=== PATIENT | male | born 1990 | race Two or more races ===

== ENCOUNTER 2020-11-03 04:09 | Emergency (ER) | payer OTHER ==
[2020-11-03] MEDS ORDERED: Acetaminophen 500 MG Tab PO ONE (04:40)
[2020-11-03] MEDS ORDERED: Ibuprofen 600 MG Tab PO ONE (04:40)
[2020-11-03 05:06] LABS: BLOOD UREA NITROGEN,BUN 11 mg/dL (7.0-18.0); CARBON DIOXIDE,CO2 29.1 mmol/L (21.0-32.0); CHLORIDE,CL 98 mmol/L (98-107); GLUCOSE RANDOM 144 mg/dL (74-106); POTASSIUM,K 3.9 mmol/L (3.5-5.1); SODIUM,NA 134 mmol/L (136-148)
--- NOTE | 2020-11-03 05:16 | CR ---
For Patients: As a result of the Cures Act, medical imaging exams and procedure reports are released immediately into your electronic medical record. You may view this report before your referring provider. If you have questions, please contact your health care provider. INDICATION: Shortness of breath TECHNIQUE: Chest radiograph 1 view COMPARISON: None FINDINGS: Severe degradation of image quality noted due to body habitus. Mediastinum: The mediastinum is normal in appearance. The heart silhouette is normal in size and morphology. Lung: Mild patchy ground-glass opacities are present in the mid and lower lung zones with small lung volumes. No sign of pleural effusion seen. No pneumothorax is identified. Bone and Soft tissue: Unremarkable for age. IMPRESSION: 1. Mild patchy ground-glass opacities are present in the mid and lower lung zones with small lung volumes. These findings can be seen with atelectasis and/or atypical pneumonia. Dictated by Antwan Williamson MD @ 11/03/2020 5:13:32 AM Dictated by: Antwan Williamson MD @ 11/03/2020 05:13:38 (Electronically Signed)
--- NOTE | 2020-11-03 05:31 | EDM.PDOC ---
<Zen Huitron - Last Filed: 11/03/20 06:16> ED HPI GENERAL MEDICAL PROBLEM - General Chief Complaint: Respiratory Problem Stated Complaint: COVID POSITIVE, COUGH, FEVER Time Seen by Provider: 11/03/20 04:56 - History of Present Illness INITIAL COMMENTS - FREE TEXT/NARRATIVE: HISTORY AND PHYSICAL: History of present illness: This is a healthy 29-year-old gentleman with no history of hypertension, diab etes, liver, lung, kidney problems who presents ER today secondary to persistent cough and recurrence of his fever after being diagnosed with coronavirus approximately 9 days ago. Patient reports that his onset of symptoms was October 22 and got diagnosed on October 25 with coronavirus. Patient reports that he was doing well after several days however approximately 2 days ago he reports his fever returned and he has been having temperatures of 102 at home. Patient reports mild shortness of breath but no significant changes. Patient reports a cough with diarrhea. Patient denies any abdominal pain. Patient has any headache or nuchal rigidity. Patient has a sore throat or ear pain. Patient reports is been able to tolerate p.o. solids and liquids well. Patient has been having nausea but no vomiting. Patient denies any dysuria, frequency, urgency, hematuria. Patient has any melena or bright red blood per rectum. Review of systems: As per history of present illness and below otherwise all systems reviewed and negative. Past medical history: As per history of present illness and as reviewed below otherwise noncontributory. Surgical history: As per history of present illness and as reviewed below otherwise noncontributory. Social history: No reported history of drug abuse. Family history: As per history of present illness and as reviewed below otherwise noncontributory. Physical exam: This patient was seen and evaluated during the 2019 SARS-CoV-2 novel coronavirus pandemic period. Community viral transmission is ongoing at time of this encounter and the emergency department is operating under pandemic response procedures. Constitutional: Patient is oriented to person, place, and time. Appears well- developed and well-nourished. No distress. HEENT: Moist mucous membranes Head: Normocephalic and atraumatic. Neck supple, no nuchal rigidity, no photophobia, no Kernig's sign or Brudzinski sign, patient does not present with signs or symptoms of be consistent with meningitis. Eyes: Right eye exhibits no discharge. Left eye exhibits no discharge. No scleral icterus Neck: Normal range of motion. No tracheal deviation present. Cardiovascular: Normal rate and regular rhythm. Pulmonary: Effort normal, no respiratory distress. Abd: Soft, nondistended, no rebound/guarding, no psoas or obturator signs, no tenderness at Mcberney's point, no Ibrahim's sign. Pt does not present with an exam that would be consistent with an acute surgical abdomen at this time Musculoskeletal: Normal range of motion Neurologic: Alert and oriented to person, place and time. Skin: [place], warm and dry. Psychiatric: Normal mood and affect. Behavior is normal. Judgment and thought content normal. Nursing note and vital signs have been reviewed Patient's ER physical exam is significant for a well-developed well-nourished 29-year-old gentleman who does not have any respiratory distress, speaking in full sentences, and has a pulse ox of 98% on room air. Patient is tachycardic and feels warm to touch Diagnostics: CBC, CMP within normal limits Chest Xray: Normal cardiac silhouette No infiltrates or effusions identified. Patient with increased interstitial markings bilaterally consistent with an atypical pneumonia/coronavirus infection No PTX No evidence of acute bony fracture. As interpreted by ER MD: [employer]: 1 L NSS, Tylenol. Assessment and plan: 29-year-old gentleman who presents ER today secondary to persistent symptoms with coronavirus. Patient reports that his fever had defervesced and then over the last couple days he is started having fever again. Patient reports his temperature was 102 earlier today. Patient complains of mild shortness of breath but that has not changed since his diagnosis. Patient reports he has not received his coronavirus vaccination. Patient reports that he works in the [employer] Patient has been given 1 L of NSS and antipyretics to assist with the symptoms he does feel better while waiting in the ED. Patient's chest x-ray reveals changes consistent with viral pneumonia/COVID-19 pneumonia and appears mild in nature. Patient's D-dimer is elevated 0.74. We will obtain a CTA of the chest to rule out PE as a cause of his shortness of breath. - Related Data Allergies Allergy/AdvReac Type Severity Reaction Status Date / Time No Known Allergies Allergy Verified 11/03/20 04:38 Home Meds: Home Meds . [No Known Home Meds] 11/03/20 [History] Past Medical History - Past Health History Medical/Surgical History: Denies Medical/Surgical History - Infectious Disease History Other Infectious Disease History: covid Social & Family History - Family History Family Medical History: No Pertinent Family History - Tobacco Use Tobacco Use Status *Q: Never Tobacco User - Recreational Drug Use Recreational Drug Use: No ED ROS GENERAL - Review of Systems Review Of Systems: See Below ED EXAM, GENERAL - Physical Exam Exam: See Below Departure - Departure Disposition: Home, Self-Care 01 Clinical Impression: Multiple persistent symptoms after COVID-19 - Discharge Information Instructions: COVID-19: What Your Test Results Mean - [facility] Referrals: PCP,None [Primary Care Provider] - Forms: ED Department Discharge Additional Instructions: You were seen and evaluated in ER today secondary to concerns regarding your re cent COVID-19 infection. The symptoms that you are experiencing are not uncommon with patients who have been diagnosed with coronavirus. At this time, the good news is your chest x-ray does not reveal any significant inflammation in your lungs, your oxygen level is been maintained at 98%, and all your blood tests have appeared normal. The only abnormality that was identified with an elevated D-dimer test which is a test that we utilized to look for blood clots that could potentially be in your lungs. This test can be elevated for no reason at all however given that years was slightly elevated CT scan of your chest was performed to look for blood clots in your lungs that could develop from coronavirus. Sepsis Event Note (ED) - Evaluation Sepsis Screening Result: Possible Sepsis Risk <Conrad Pineda - Last Filed: 11/03/20 07:44> Course - Vital Signs Last Recorded V/S: Last Vital Signs Temp 96.3 F L 11/03/20 07:37 Pulse 90 11/03/20 07:37 Resp 18 11/03/20 07:37 BP 130/83 11/03/20 07:37 Pulse Ox 100 11/03/20 07:37 - Orders/Labs/Meds Labs: Laboratory Tests 11/03/20 11/03/20 11/03/20 Range/Units 04:30 04:30 05:09 WBC 6.24 (4.0-11.0) K/uL RBC 5.25 (4.50-5.90) M/uL Hgb 16.5 (13.0-17.0) g/dL Hct 46.5 (38.0-50.0) % MCV 88.6 (80.0-98.0) fL MCH 31.4 (27.0-32.0) pg MCHC 35.5 (31.0-37.0) g/dL RDW Std Deviation 40.5 (28.0-62.0) fl RDW Coeff of Didier 13 (11.0-15.0) % Plt Count 217 (150-400) K/uL MPV 9.90 (7.40-12.00) fL Nucleated RBC % 0.0 /100WBC Nucleated RBCs # 0 K/uL D-Dimer, Quantitative 0.77 H (0.0-0.50) mg/L FEU Sodium 134 L (136-148) mmol/L Potassium 3.9 (3.5-5.1) mmol/L Chloride 98 (98-107) mmol/L Carbon Dioxide 29.1 (21.0-32.0) mmol/L BUN 11 (7.0-18.0) mg/dL Creatinine 1.1 (0.8-1.3) mg/dL Est Cr Clr Drug Dosing TNP Estimated GFR (MDRD) > 60.0 ml/min Glucose 144 H (74-106) mg/dL Calcium 8.4 L (8.5-10.1) mg/dL Total Bilirubin 0.5 (0.2-1.0) mg/dL AST 45 H (15-37) IU/L ALT 60 (14-63) IU/L Alkaline Phosphatase 68 (46-116) U/L Total Protein 7.4 (6.4-8.2) g/dL Albumin 3.2 L (3.4-5.0) g/dL Globulin 4.2 H (2.6-4.0) g/dL Albumin/Globulin Ratio 0.8 L (0.9-1.6) Meds: Medications Discontinued Medications Generic Name Dose Route Start Last Admin Trade Name Freq PRN Reason Stop Dose Admin Acetaminophen 1,000 mg 11/03/20 04:40 11/03/20 04:48 Acetaminophen 500 Mg Tab PO 11/03/20 04:41 1,000 mg ONETIME ONE Administration Ibuprofen 600 mg 11/03/20 04:40 11/03/20 04:48 Ibuprofen 600 Mg Tab PO 11/03/20 04:41 600 mg ONETIME ONE Administration Iopamidol 100 ml 11/03/20 07:05 11/03/20 07:06 Iopamidol 755 Mg/Ml 500 Ml Multipack Bottle IVPUSH 11/03/20 07:06 100 ml ONETIME STA Administration - Re-Assessments/Exams Free Text/Narrative Re-Assessment/Exam: 11/03/20 07:42 Signout to me from previous provider. Patient was pending a CT PE study. CT scan is negative for any pulmonary embolism. Patient heart rate from 80 he was well side 100 was on room air patient be discharged home. Departure - Departure Time of Disposition: 07:43 Condition: Good - Discharge Information *PRESCRIPTION DRUG MONITORING PROGRAM REVIEWED*: Not Applicable *COPY OF PRESCRIPTION DRUG MONITORING REPORT IN PATIENT YASMINE: Not Applicable Sepsis Event Note (ED) - Focused Exam Vital Signs: Vital Signs Temp Pulse Resp BP Pulse Ox 11/03/20 07:37 96.3 F L 90 18 130/83 100 11/03/20 04:33 98.8 F 124 H 20 125/80 98
[2020-11-03] MEDS ORDERED: Iopamidol 755 MG/ML 500 ML Multipack Bottle IVPUSH STA (07:05)
--- NOTE | 2020-11-03 07:29 | CT ---
INDICATION: Shortness of breath. Elevated D-dimer. TECHNIQUE: CT chest PE was acquired with 100 cc Isovue 370 IV contrast. COMPARISON: None. FINDINGS: Heart and vasculature: Contrast opacification of the pulmonary arterial tree is adequate. No sign of pulmonary embolism. Heart size is normal. Thoracic aorta and pulmonary artery are normal in caliber. Lungs and pleural: There are diffuse bilateral patchy ground-glass infiltrates. No suspicious nodule. No pleural effusions, pleural thickening, or pneumothorax. Lymph nodes/mediastinum: No mediastinal, hilar, or axillary adenopathy. Chest wall: No masses. Upper abdomen: Normal. Bones: Unremarkable for age. IMPRESSION: 1. No pulmonary embolism. 2. Diffuse patchy bilateral ground-glass infiltrates consistent with pneumonitis. COVID-19 viral infection could have this appearance. Please note that all CT scans at this facility use dose modulation, iterative reconstruction, and/or weight-based dosing when appropriate to reduce radiation dose to as low as reasonably achievable. Dictated by Asael Neumann MD @ 11/03/2020 7:27:[address] Asael Neumann @ Nov 03 2020 7:27AM
== END 2020-11-03 07:50 | disposition home or self-care (01) ==
LOC: MW.ED 04:09
DX: U07.1 COVID-19 (principal); J12.82 Pneumonia due to coronavirus disease 2019; J96.01 Acute respiratory failure with hypoxia; E11.9 Type 2 diabetes mellitus without complications
CPT/HCPCS: 36415; 71045; 71275; 80053; 85027; 85379; 99284; A9270; Q9967

== ENCOUNTER 2020-11-05 22:11 | Inpatient (IN) | payer OTHER ==
--- NOTE | 2020-11-05 22:31 | EDM.PDOC ---
ED HPI GENERAL MEDICAL PROBLEM - General Chief Complaint: Respiratory Problem Stated Complaint: DIFFICULTY BREATHING, COVID POSITIVE Time Seen by Provider: 11/05/20 22:14 Source of Information: Reports: Patient History Limitations: Reports: No Limitations - History of Present Illness INITIAL COMMENTS - FREE TEXT/NARRATIVE: Patient is a 29-year-old male who presents today for shortness of breath. Patient was seen here 2 days ago for shortness of breath. He also tested positive for Covid. States symptoms started about 10 days ago tested positive recently. The previous visit he was seen has CT PE r/o is negative. Patient states that today whenever he got up to move around enough to the bathroom became severely short of breath. Even coming here walking to the front door he almost passed out because he cannot breathe. We arrived he was satting 86% on room air was placed on a nonrebreather. He is satting 90% on nonrebreather his nasal cannula is now at 93%. Patient denies any chest pain fever chills or other complaints. - Related Data Allergies Allergy/AdvReac Type Severity Reaction Status Date / Time No Known Allergies Allergy Verified 11/05/20 22:22 Home Meds: Home Meds . [No Known Home Meds] 11/03/20 [History] Past Medical History - Past Health History Medical/Surgical History: Denies Medical/Surgical History - Infectious Disease History Other Infectious Disease History: covid Social & Family History - Family History Family Medical History: No Pertinent Family History ED ROS GENERAL - Review of Systems Review Of Systems: See Below Constitutional: Reports: No Symptoms HEENT: Reports: No Symptoms Respiratory: Reports: Shortness of Breath Cardiovascular: Reports: No Symptoms Endocrine: Reports: No Symptoms GI/Abdominal: Reports: No Symptoms : Reports: No Symptoms Musculoskeletal: Reports: No Symptoms Skin: Reports: No Symptoms Neurological: Reports: No Symptoms Psychiatric: Reports: No Symptoms Hematologic/Lymphatic: Reports: No Symptoms Immunologic: Reports: No Symptoms ED EXAM, GENERAL - Physical Exam Exam: See Below Exam Limited By: No Limitations General Appearance: Alert, WD/WN, No Apparent Distress Eye Exam: Bilateral Eye: EOMI, PERRL Neck: Normal Inspection Respiratory/Chest: No Respiratory Distress, No Accessory Muscle Use GI/Abdominal: Normal Bowel Sounds, Soft, Non-Tender Extremities: Normal Inspection, Normal Range of Motion Neurological: Alert, Oriented, Normal Cognition, Normal Gait Course - Vital Signs Last Recorded V/S: Last Vital Signs Temp 98.1 F 11/05/20 22:15 Pulse 85 11/05/20 22:15 Resp 24 H 11/05/20 22:15 BP 159/81 H 11/05/20 22:15 Pulse Ox 93 L 11/05/20 22:35 - Orders/Labs/Meds Orders: Active Orders 24 hr Category Date Time Status Patient Status [ADT] Routine ADT 11/05/20 23:15 Ordered BILIRUBIN DIRECT [CHEM] DAILY Lab 11/06/20 22:45 Ordered BILIRUBIN DIRECT [CHEM] DAILY Lab 11/07/20 22:45 Ordered BILIRUBIN DIRECT [CHEM] DAILY Lab 11/08/20 22:45 Ordered BILIRUBIN DIRECT [CHEM] DAILY Lab 11/09/20 22:45 Ordered Labs: Laboratory Tests 11/05/20 11/05/20 11/05/20 Range/Units 22:35 22:35 22:35 WBC 8.19 (4.0-11.0) K/uL RBC 4.91 (4.50-5.90) M/uL Hgb 15.2 (13.0-17.0) g/dL Hct 44.1 (38.0-50.0) % MCV 89.8 (80.0-98.0) fL MCH 31.0 (27.0-32.0) pg MCHC 34.5 (31.0-37.0) g/dL RDW Std Deviation 42.0 (28.0-62.0) fl RDW Coeff of Didier 13 (11.0-15.0) % Plt Count 333 (150-400) K/uL MPV 9.20 (7.40-12.00) fL Neut % (Auto) 69.6 (48.0-80.0) % Lymph % (Auto) 20.8 (16.0-40.0) % [place] % (Auto) 8.3 (0.0-15.0) % Eos % (Auto) 0.9 (0.0-7.0) % Baso % (Auto) 0.4 (0.0-1.5) % Neut # (Auto) 5.7 (1.4-5.7) K/uL Lymph # (Auto) 1.7 (0.6-2.4) K/uL [place] # (Auto) 0.7 (0.0-0.8) K/uL Eos # (Auto) 0.1 (0.0-0.7) K/uL Baso # (Auto) 0.0 (0.0-0.1) K/uL Nucleated RBC % 0.0 /100WBC Nucleated RBCs # 0 K/uL Sodium 142 (136-148) mmol/L Potassium 3.6 (3.5-5.1) mmol/L Chloride 103 (98-107) mmol/L Carbon Dioxide 29.9 (21.0-32.0) mmol/L BUN 7 (7.0-18.0) mg/dL Creatinine 0.8 (0.8-1.3) mg/dL Est Cr Clr Drug Dosing 155.55 mL/min Estimated GFR (MDRD) > 60.0 ml/min Glucose 142 H (74-106) mg/dL Calcium 8.6 (8.5-10.1) mg/dL Total Bilirubin 0.4 (0.2-1.0) mg/dL Direct Bilirubin 0.10 (0.0-0.5) mg/dL AST 35 (15-37) IU/L ALT 44 (14-63) IU/L Alkaline Phosphatase 63 (46-116) U/L Creatine Kinase 187 (26-308) U/L Troponin I < 0.050 (0.000-0.056) ng/mL Total Protein 7.0 (6.4-8.2) g/dL Albumin 2.8 L (3.4-5.0) g/dL Globulin 4.2 H (2.6-4.0) g/dL Albumin/Globulin Ratio 0.7 L (0.9-1.6) Meds: Medications Discontinued Medications Generic Name Dose Route Start Last Admin Trade Name Freq PRN Reason Stop Dose Admin Dexamethasone 10 mg 11/05/20 22:43 11/05/20 23:01 Dexamethasone 10 Mg/Ml Sdv IVPUSH 11/05/20 22:44 10 mg ONETIME ONE Administration Remdesivir 200 mg/ Sodium 250 mls @ 250 mls/hr 11/05/20 22:43 Chloride IV 11/05/20 22:44 ONETIME ONE Departure - Departure Time of Disposition: 23:16 Disposition: Admitted As Inpatient 64 Condition: Good Clinical Impression: Hypoxia - Discharge Information *PRESCRIPTION DRUG MONITORING PROGRAM REVIEWED*: Not Applicable *COPY OF PRESCRIPTION DRUG MONITORING REPORT IN PATIENT YASMINE: Not Applicable Forms: ED Department Discharge Critical Care Note - Critical Care Note Total Time (mins): 45 Comments: Critical Care Procedure Note Authorized and Performed by: Dr. Pineda Total critical care time: Approximately Due to a high probability of clinically significant, life threatening deterioration, the patient required my highest level of preparedness to intervene emergently and I personally spent this critical care time directly and personally managing the patient. This critical care time included obtaining a history; examining the patient; pulse oximetry; ordering and review of studies; arranging urgent treatment with development of a management plan; evaluation of patient's response to treatment; frequent reassessment; and, discussions with other providers. This critical care time was performed to assess and manage the high probability of imminent, life-threatening deterioration that could result in multi-organ failure. It was exclusive of separately billable procedures and treating other patients and teaching time. Sepsis Event Note (ED) - Evaluation Sepsis Screening Result: No Definite Risk - Focused Exam Vital Signs: Vital Signs Temp Pulse Resp BP Pulse Ox 11/05/20 22:35 93 L 11/05/20 22:20 98 11/05/20 22:15 98.1 F 85 24 H 159/81 H 88 L - My Orders Last 24 Hours: My Active Orders 11/05/20 23:15 Patient Status [ADT] Routine 11/06/20 22:45 BILIRUBIN DIRECT [CHEM] DAILY 11/07/20 22:45 BILIRUBIN DIRECT [CHEM] DAILY 11/08/20 22:45 BILIRUBIN DIRECT [CHEM] DAILY 11/09/20 22:45 BILIRUBIN DIRECT [CHEM] DAILY - Assessment/Plan Last 24 Hours: My Active Orders 11/05/20 23:15 Patient Status [ADT] Routine 11/06/20 22:45 BILIRUBIN DIRECT [CHEM] DAILY 11/07/20 22:45 BILIRUBIN DIRECT [CHEM] DAILY 11/08/20 22:45 BILIRUBIN DIRECT [CHEM] DAILY 11/09/20 22:45 BILIRUBIN DIRECT [CHEM] DAILY Plan: Patient is a 29-year-old male test positive for Covid recently presents today for acute shortness of breath requiring oxygen. Patient recently seen in ED had negative CT PE studies. Patient will require admission is now requiring oxygen.
[2020-11-05] MEDS ORDERED: REMDESIVIR 200 MG in Sodium Chloride 0.9% 250 ML IV ONE (22:43)
[2020-11-05] MEDS ORDERED: Dexamethasone 10 MG/ML SDV IVPUSH ONE (22:43)
--- NOTE | 2020-11-05 23:01 | CR ---
For Patients: As a result of the Cures Act, medical imaging exams and procedure reports are released immediately into your electronic medical record. You may view this report before your referring provider. If you have questions, please contact your health care provider. INDICATION: COVID-19 shortness of breath TECHNIQUE: Chest radiograph 1 view COMPARISON: 11/03/2020 FINDINGS: Severe degradation of image quality noted due to body habitus. Mediastinum: The mediastinum is normal in appearance. The heart silhouette is normal in size and morphology. Lung: Moderate nodular airspace infiltrates are present bilaterally and significantly increased compared to prior exam. No sign of pleural effusion seen. No pneumothorax is identified. Bone and Soft tissue: Unremarkable for age. IMPRESSION: 1. Moderate nodular airspace infiltrates are present bilaterally and significantly increased compared to prior exam. Dictated by Antwan Williamson MD @ 11/05/2020 11:01:31 PM Dictated by: Antwan Williamson MD @ 11/05/2020 23:01:37 (Electronically Signed)
[2020-11-05 23:11] LABS: BLOOD UREA NITROGEN,BUN 7 mg/dL (7.0-18.0); CARBON DIOXIDE,CO2 29.9 mmol/L (21.0-32.0); CHLORIDE,CL 103 mmol/L (98-107); GLUCOSE RANDOM 142 mg/dL (74-106); POTASSIUM,K 3.6 mmol/L (3.5-5.1); SODIUM,NA 142 mmol/L (136-148)
[2020-11-05] MEDS ORDERED: Ondansetron 4 MG/2 ML SDV IVPUSH PRN (23:32)
[2020-11-05] MEDS ORDERED: Acetaminophen 325 MG Tab PO PRN (23:32)
[2020-11-05] MEDS ORDERED: Albuterol/Ipratropium 3.0-0.5 MG/3 ML Neb Soln NEB PRN (23:32)
[2020-11-05] MEDS ORDERED: 50% Dextrose in Water 50 ML Syringe IVPUSH PRN (23:38)
[2020-11-05] MEDS ORDERED: Glucagon,Human Recombinant 1 MG Vial IM PRN (23:38)
[2020-11-05 23:55] LABS: HEMOGLOBIN A1C 6.5 %
[2020-11-06] MEDS: Enoxaparin 40 MG/0.4 ML Syringe SUBCUT SCH ×2 (00:29→23:26)
[2020-11-06] MEDS: Levofloxacin/Dextrose 5%-Water 750 MG in Premix Bag 1 BAG IV SCH ×2 (00:29→23:27)
[2020-11-06] MEDS: Albuterol/Ipratropium 4 GM Inhalation Spray INH SCH ×7 (00:29→23:38)
[2020-11-06] MEDS: Insulin Aspart 100 Units/ML 3 ML Pen SUBCUT SCH ×3 (07:57→19:02)
--- NOTE | 2020-11-06 08:13 | PCM.HP.2 ---
H&P History of Present Illness - General Date of Service: 11/06/20 Admit Problem/Dx: Admission Diagnosis/Problem Admission Diagnosis/Problem Hypoxia Source of Information: Patient History Limitations: Reports: No Limitations - History of Present Illness Initial Comments - Free Text/Narative: This 29-year-old male with no significant past medical history presented to the ER last evening with complaints of shortness of breath. He reports he initially started getting sick October 22 with upper respiratory symptoms along with loss of smell and taste fevers diarrhea. He was evaluated and tested for Covid on October 25 and tested positive. Reports that he was at home recuperating and quarantining and somewhat felt like he was improving but then a few days ago he again started having fevers and some shortness of breath. He came to the ER oxygen saturations were normal. CTA of chest was completed was negative for any pulmonary embolism. He was discharged home but over the next 2 days shortness of breath significantly worsened to the point that he had a near syncopal ep isode while ambulating. When he arrived in the ER he was noted to be satting 86% on room air. He denies any further upper respiratory symptoms denies any neck pain. He denies any chest pain palpitations. Reports shortness of breath as stated above. Denies any further abdominal pain and no diarrhea. He denies any tobacco use, recreational drug use and occasional social alcohol use. In the ER CBC within normal limits. Platelets 333,000 BMP essentially normal slightly elevated glucose. A1c checked 6.5. Liver functions within normal limits. Troponin negative. Cholesterol 150 LDL 96 HDL 18 triglycerides 178. TSH 1.19. Chest x-ray obtained which reveals moderate nodule airspace infilt rates present bilaterally and significantly increased from previous exam. Patient was treated with remdesivir 200 mg bolus along with 10 mg IV dexamethasone in the ER. He will be admitted for acute hypoxic respiratory failure, COVID-19, and CAP. - Related Data Allergies/Adverse Reactions: Allergies Allergy/AdvReac Type Severity Reaction Status Date / Time No Known Allergies Allergy Verified 11/06/20 00:51 Home Medications: Home Meds . [No Known Home Meds] 11/03/20 [History] Past Medical History - Past Health History Medical/Surgical History: Denies Medical/Surgical History HEENT History: Reports: None Cardiovascular History: Reports: None. Denies: CAD, High Cholesterol, Hypertension Respiratory History: Reports: None. 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 Velvet: None Hematologic History: Reports: None Immunologic History: Reports: None Oncologic (Cancer) History: Reports: None Dermatologic History: Reports: None - Infectious Disease History Infectious Disease History: Reports: Novel Coronavirus Other Infectious Disease History: covid - Past Surgical History Head Surgeries/Procedures: Reports: None Social & Family History - Family History Family Medical History: No Pertinent Family History - Tobacco Use Tobacco Use Status *Q: Never Tobacco User Second Hand Smoke Exposure: No - Caffeine Use Caffeine Use: Reports: None - Alcohol Use Alcohol Use Frequency: Rarely, Socially - Recreational Drug Use Recreational Drug Use: No - Living Situation & Occupation Living situation: Reports: Single Occupation: Employed H&P Review of Systems - Review of Systems: Review Of Systems: See Below General: Reports: Fever, Chills, Malaise Pulmonary: Reports: Shortness of Breath, Cough. Denies: Sputum Cardiovascular: Reports: Dyspnea on Exertion. Denies: Chest Pain, Palpitations, Lightheadedness Gastrointestinal: Reports: No Symptoms. Denies: Abdominal Pain, Black Stool, Bloody Stool, Nausea, Vomiting Genitourinary: Reports: No Symptoms. Denies: Dysuria, Frequency Musculoskeletal: Reports: No Symptoms Skin: Reports: No Symptoms Psychiatric: Reports: No Symptoms Neurological: Reports: No Symptoms Hematologic/Lymphatic: Reports: No Symptoms Immunologic: Reports: No Symptoms Exam - Exam Exam: See Below - Vital Signs Vital Signs: Last Vital Signs Temp 98.5 F 11/06/20 04:27 Pulse 85 11/06/20 04:27 Resp 18 11/06/20 06:40 BP 133/82 11/06/20 04:27 Pulse Ox 95 11/06/20 06:40 Weight: 156.58 kg - Exam Quality Assessment: Supplemental Oxygen (3l NC) General: Alert, Oriented, Cooperative HEENT: Conjunctiva Clear, Mucosa Moist & [place], Pupils Equal Lungs: Normal Respiratory Effort, Decreased Breath Sounds (bibasilar) Cardiovascular: Regular Rate, Regular Rhythm Back Exam: Normal Inspection, Full Range of Motion Extremities: Normal Inspection, Normal Range of Motion, No Pedal Edema Skin: Warm, Dry Neuro Extensive - Mental Status: Alert, Oriented x3 Neuro Extensive - Motor, Sensory, Reflexes: CN II-XII Intact Psychiatric: Alert, Normal Affect, Normal Mood - Patient Data Lab Results Last 24 hrs: Laboratory Results - last 24 hr 11/05/20 11/05/20 11/05/20 Range/Units 22:35 22:35 22:35 WBC 8.19 (4.0-11.0) K/uL RBC 4.91 (4.50-5.90) M/uL Hgb 15.2 (13.0-17.0) g/dL Hct 44.1 (38.0-50.0) % MCV 89.8 (80.0-98.0) fL MCH 31.0 (27.0-32.0) pg MCHC 34.5 (31.0-37.0) g/dL RDW Std Deviation 42.0 (28.0-62.0) fl RDW Coeff of Didier 13 (11.0-15.0) % Plt Count 333 (150-400) K/uL MPV 9.20 (7.40-12.00) fL Neut % (Auto) 69.6 (48.0-80.0) % Lymph % (Auto) 20.8 (16.0-40.0) % [place] % (Auto) 8.3 (0.0-15.0) % Eos % (Auto) 0.9 (0.0-7.0) % Baso % (Auto) 0.4 (0.0-1.5) % Neut # (Auto) 5.7 (1.4-5.7) K/uL Lymph # (Auto) 1.7 (0.6-2.4) K/uL [place] # (Auto) 0.7 (0.0-0.8) K/uL Eos # (Auto) 0.1 (0.0-0.7) K/uL Baso # (Auto) 0.0 (0.0-0.1) K/uL Nucleated RBC % 0.0 /100WBC Nucleated RBCs # 0 K/uL Sodium 142 (136-148) mmol/L Potassium 3.6 (3.5-5.1) mmol/L Chloride 103 (98-107) mmol/L Carbon Dioxide 29.9 (21.0-32.0) mmol/L BUN 7 (7.0-18.0) mg/dL Creatinine 0.8 (0.8-1.3) mg/dL Est Cr Clr Drug Dosing 155.55 mL/min Estimated GFR (MDRD) > 60.0 ml/min Glucose 142 H (74-106) mg/dL POC Glucose (70-99) mg/dL Hemoglobin A1c (4.5 - 6.2) % Calcium 8.6 (8.5-10.1) mg/dL Total Bilirubin 0.4 (0.2-1.0) mg/dL Direct Bilirubin 0.10 (0.0-0.5) mg/dL AST 35 (15-37) IU/L ALT 44 (14-63) IU/L Alkaline Phosphatase 63 (46-116) U/L Creatine Kinase 187 (26-308) U/L Troponin I < 0.050 (0.000-0.056) ng/mL Total Protein 7.0 (6.4-8.2) g/dL Albumin 2.8 L (3.4-5.0) g/dL Globulin 4.2 H (2.6-4.0) g/dL Albumin/Globulin Ratio 0.7 L (0.9-1.6) Triglycerides (0-200) mg/dL Cholesterol (50-200) mg/dL LDL Cholesterol, Calc (60-180) mg/dL VLDL Cholesterol (5-55) mg/dL HDL Cholesterol (40-60) mg/dL Cholesterol/HDL Ratio (3.3-6.0) TSH, Ultra Sensitive (0.36-3.74) uIU/mL 11/05/20 11/05/20 11/06/20 Range/Units 22:35 22:35 06:34 WBC (4.0-11.0) K/uL RBC (4.50-5.90) M/uL Hgb (13.0-17.0) g/dL Hct (38.0-50.0) % MCV (80.0-98.0) fL MCH (27.0-32.0) pg MCHC (31.0-37.0) g/dL RDW Std Deviation (28.0-62.0) fl RDW Coeff of Didier (11.0-15.0) % Plt Count (150-400) K/uL MPV (7.40-12.00) fL Neut % (Auto) (48.0-80.0) % Lymph % (Auto) (16.0-40.0) % [place] % (Auto) (0.0-15.0) % Eos % (Auto) (0.0-7.0) % Baso % (Auto) (0.0-1.5) % Neut # (Auto) (1.4-5.7) K/uL Lymph # (Auto) (0.6-2.4) K/uL [place] # (Auto) (0.0-0.8) K/uL Eos # (Auto) (0.0-0.7) K/uL Baso # (Auto) (0.0-0.1) K/uL Nucleated RBC % /100WBC Nucleated RBCs # K/uL Sodium (136-148) mmol/L Potassium (3.5-5.1) mmol/L Chloride (98-107) mmol/L Carbon Dioxide (21.0-32.0) mmol/L BUN (7.0-18.0) mg/dL Creatinine (0.8-1.3) mg/dL Est Cr Clr Drug Dosing mL/min Estimated GFR (MDRD) ml/min Glucose (74-106) mg/dL POC Glucose 159 H (70-99) mg/dL Hemoglobin A1c 6.5 H (4.5 - 6.2) % Calcium (8.5-10.1) mg/dL Total Bilirubin (0.2-1.0) mg/dL Direct Bilirubin (0.0-0.5) mg/dL AST (15-37) IU/L ALT (14-63) IU/L Alkaline Phosphatase (46-116) U/L Creatine Kinase (26-308) U/L Troponin I (0.000-0.056) ng/mL Total Protein (6.4-8.2) g/dL Albumin (3.4-5.0) g/dL Globulin (2.6-4.0) g/dL Albumin/Globulin Ratio (0.9-1.6) Triglycerides 178 (0-200) mg/dL Cholesterol 150 (50-200) mg/dL LDL Cholesterol, Calc 96 (60-180) mg/dL VLDL Cholesterol 35 (5-55) mg/dL HDL Cholesterol 18 L (40-60) mg/dL Cholesterol/HDL Ratio 8.3 H (3.3-6.0) TSH, Ultra Sensitive 1.19 (0.36-3.74) uIU/mL Result Diagrams: 11/05/20 22:35 11/05/20 22:35 Sepsis Event Note - Evaluation Sepsis Screening Result: No Definite Risk - Focused Exam Vital Signs: Vital Signs Temp Pulse Pulse Resp BP Pulse Ox 11/06/20 06:40 18 95 11/06/20 05:13 20 93 L 11/06/20 04:27 98.5 F 85 20 133/82 92 L 11/06/20 00:15 98.6 F 90 22 H 150/76 H 94 L 11/05/20 23:53 87 20 151/81 H 95 11/05/20 22:35 93 L 11/05/20 22:20 98 11/05/20 22:15 98.1 F 85 24 H 159/81 H 88 L - Problem List (1) Acute respiratory failure with hypoxia SNOMED Code(s): 73243941, 659995208 ICD Code: J96.01 - ACUTE RESPIRATORY FAILURE WITH HYPOXIA Status: Acute Current Visit: Yes (2) COVID-19 SNOMED Code(s): 178072167 ICD Code: U07.1 - COVID-19 Status: Acute Current Visit: Yes (3) CAP (community acquired pneumonia) SNOMED Code(s): 619593910 ICD Code: J18.9 - PNEUMONIA, UNSPECIFIED ORGANISM Status: Acute Current Visit: Yes (4) New onset type 2 diabetes mellitus SNOMED Code(s): 37221564 ICD Code: E11.9 - TYPE 2 DIABETES MELLITUS WITHOUT COMPLICATIONS Status: A cute Current Visit: Yes Problem List Initiated/Reviewed/Updated: Yes Orders Last 24hrs: Active Orders 24 hr Category Date Time Status Patient Status [ADT] Routine ADT 11/05/20 23:15 Active Ambulate [RC] ASDIRECTED Care 11/05/20 23:32 Active Antiembolic Devices [RC] PER UNIT ROUTINE Care 11/05/20 23:33 Active Oxygen Therapy [RC] PRN Care 11/05/20 23:32 Active Pulse Oximetry [RC] PRN Care 11/05/20 23:32 Active RT Aerosol Therapy [RC] ASDIRECTED Care 11/05/20 23:33 Active RT Incentive Spirometry [RC] Q2HWA Care 11/05/20 23:36 Active RT Post Treatment Assessment [RC] Click to Edit Care 11/05/20 23:33 Active RT Pre-Treatment Assessment [RC] Click to Edit Care 11/05/20 23:33 Active VTE/DVT Education [RC] PER UNIT ROUTINE Care 11/05/20 23:32 Active Vital Signs [RC] Q4H Care 11/05/20 23:32 Active ADA Diabetic [[place] [employer] Diet] [DIET Diet 11/06/20 Breakfast Active ] BILIRUBIN DIRECT [CHEM] DAILY Lab 11/06/20 22:45 Ordered BILIRUBIN DIRECT [CHEM] DAILY Lab 11/07/20 22:45 Ordered BILIRUBIN DIRECT [CHEM] DAILY Lab 11/08/20 22:45 Ordered BILIRUBIN DIRECT [CHEM] DAILY Lab 11/09/20 22:45 Ordered Acetaminophen [TylenoL] Med 11/05/20 23:32 Active 650 mg PO Q4H PRN Albuterol/Ipratropium [Combivent Respimat] Med 11/05/20 23:45 Active See Dose Instructions INH Q4H Albuterol/Ipratropium [DuoNeb 3.0-0.5 MG/3 ML] Med 11/05/20 23:32 Active 3 ml NEB Q4HRRT PRN Dextrose 50% in Water Med 11/05/20 23:38 Active 50 ml IVPUSH ASDIRECTED PRN Enoxaparin [Lovenox] Med 11/05/20 23:45 Active 40 mg SUBCUT Q24H Glucagon,Human Recombinant [GlucaGen] Med 11/05/20 23:38 Active 1 mg IM ASDIRECTED PRN Insulin Aspart [NovoLOG] Med 11/06/20 07:30 Active See Protocol SUBCUT TIDAC Levofloxacin/Dextrose 5%-Water [Levaquin in D5W 750 MG/ Med 11/05/20 23:45 Active 150 ML] 750 mg Premix Bag 1 bag IV Q24H Ondansetron [Zofran] Med 11/05/20 23:32 Active 4 mg IVPUSH Q4H PRN Pantoprazole [ProTONIX IV] Med 11/06/20 09:00 Active 40 mg IV DAILY Remdesivir 100 mg Med 11/06/20 09:00 Active Sodium Chloride 0.9% [Normal Saline] 100 ml IV Q24H dexAMETHasone Med 11/06/20 09:00 Active 6 mg PO DAILY Sequential Compression Device [OM.PC] Per Unit Routine Oth 11/05/20 23:32 Ordered Resuscitation Status Routine Resus Stat 11/05/20 23:32 Ordered Medication Orders Acetaminophen (Acetaminophen 325 Mg Tab) 650 mg PO Q4H PRN PRN Reason: Pain (Mild 1-3)/fever Albuterol/Ipratropium (Albuterol/Ipratropium 3.0-0.5 Mg/3 Ml Neb Soln) 3 ml NEB Q4HRRT PRN PRN Reason: Shortness Of Breath/wheezing Albuterol/Ipratropium (Albuterol/Ipratropium 4 Gm Inhalation [place]) 0 gm INH Q4H MARIAH Last Admin: 11/06/20 08:01 Dose: 1 puff Documented by: Admin: 11/06/20 04:15 Dose: 1 puff Documented by: Admin: 11/06/20 00:29 Dose: 1 puff Documented by: SAPPHIRE Dexamethasone (Dexamethasone 4 Mg Tab) 6 mg PO DAILY [facility] Dextrose/Water (50% Dextrose In Water 50 Ml Syringe) 50 ml IVPUSH ASDIRECTED PRN PRN Reason: Hypoglycemia Enoxaparin Sodium (Enoxaparin 40 Mg/0.4 Ml Syringe) 40 mg SUBCUT Q24H [facility] Last Admin: 11/06/20 00:29 Dose: 40 mg Documented by: SAPPHIRE Glucagon (Glucagon,Human Recombinant 1 Mg Vial) 1 mg IM ASDIRECTED PRN PRN Reason: Hypoglycemia Remdesivir 100 mg/ Sodium (Chloride) 100 mls @ 100 mls/hr IV Q24H [facility] Stop: 11/09/20 09:59 Levofloxacin/Dextrose 750 mg/ (Premix) 150 mls @ 100 mls/hr IV Q24H [facility] Last Admin: 11/06/20 00:29 Dose: 100 mls/hr Documented by: SAPPHIRE Insulin Aspart (Insulin Aspart 100 Units/Ml 3 Ml Pen) 0 unit SUBCUT TIDAC MARIAH; Protocol Last Admin: 11/06/20 07:57 Dose: 2 unit Documented by: ANNA Ondansetron HCl (Ondansetron 4 Mg/2 Ml Sdv) 4 mg IVPUSH Q4H PRN PRN Reason: Nausea/Vomiting Pantoprazole Sodium (Pantoprazole 40 Mg Vial) 40 mg IV DAILY [facility]IAH Assessment/Plan Comment:: This 29 year old male admitted with acute hypoxic respiratory failure, COVID 10, CAP 1. Acute hypoxic respiratory failure/COVID 19/CAP - Continue oxygen to keep sats greater than 92%, wean as possible - Encourage IS, Acapella and proning - Continue Remdesivir 100 mg x 4 days - Continue Dexamethasone 6 mg PO daily - Lovenox 40 mg daily - Combivent inhaler PRN - Levaquin 750 mg IV daily for CAP - Monitor LFTs during remdesivir treatment 2. New onset DM Type 2 - Monitor BS TIDAC - Novolog SSI - DM education to be consulted. VTE prophylaxis: Lovenox GI prophylaxis: Protonix CODE STATUS: Full Code Dispo: 2-3 days pending improvement
[2020-11-06] MEDS ORDERED: Sodium Chloride 0.9% 2.5 ML Syringe FLUSH PRN (08:17)
[2020-11-06] MEDS: Dexamethasone 4 MG Tab PO SCH (08:47)
[2020-11-06] MEDS: Pantoprazole 40 MG Vial IV SCH (08:47)
[2020-11-06] MEDS ORDERED: REMDESIVIR 100 MG in Sodium Chloride 0.9% 100 ML IV SCH (09:00)
[2020-11-06] MEDS: REMDESIVIR 100 MG in Sodium Chloride 0.9% 100 ML IV SCH (22:06)
[2020-11-07] MEDS: Albuterol/Ipratropium 4 GM Inhalation Spray INH SCH ×6 (04:28→23:28)
[2020-11-07 07:24] LABS: BLOOD UREA NITROGEN,BUN 13 mg/dL (7.0-18.0); CARBON DIOXIDE,CO2 27.8 mmol/L (21.0-32.0); CHLORIDE,CL 107 mmol/L (98-107); GLUCOSE RANDOM 145 mg/dL (74-106); POTASSIUM,K 4.3 mmol/L (3.5-5.1); SODIUM,NA 142 mmol/L (136-148)
[2020-11-07] MEDS: Dexamethasone 4 MG Tab PO SCH (09:34)
[2020-11-07] MEDS: Pantoprazole 40 MG Vial IV SCH (09:34)
[2020-11-07] MEDS: Insulin Aspart 100 Units/ML 3 ML Pen SUBCUT SCH ×3 (10:05→17:00)
--- NOTE | 2020-11-07 12:59 | PCM.PN ---
- General Info Date of Service: 11/07/20 Admission Dx/Problem (Free Text): Admission Diagnosis/Problem Admission Diagnosis/Problem Hypoxia Subjective Update: Patient seen and examined at bedside, resting comfortably no acute distress. Functional Status: Reports: Tolerating Diet, Ambulating, Urinating - Review of Systems General: Reports: Fatigue. Denies: Fever, Weakness, Malaise Cardiovascular: Denies: Chest Pain, Palpitations Gastrointestinal: Denies: Abdominal Pain, Constipation Genitourinary: Denies: Dysuria, Frequency, Burning Musculoskeletal: Denies: Neck Pain, Shoulder Pain, Arm Pain Skin: Denies: Cyanosis, Jaundice, Mottled - Patient Data Vitals - Most Recent: Last Vital Signs Temp 36.3 C 11/07/20 10:00 Pulse 74 11/07/20 10:00 Resp 18 11/07/20 10:00 BP 122/74 11/07/20 10:00 Pulse Ox 92 L 11/07/20 10:00 Weight - Most Recent: 156.58 kg I&O - Last 24 Hours: Intake & Output 11/06/20 11/07/20 11/07/20 22:59 06:59 14:59 Intake Total 1800 1300 Output Total 2100 1900 Balance -300 -600 Lab Results Last 24 Hours: Laboratory Results - last 24 hr 11/06/20 11/06/20 11/07/20 Range/Units 12:58 18:19 06:10 WBC 13.33 H (4.0-11.0) K/uL RBC 4.70 (4.50-5.90) M/uL Hgb 14.5 (13.0-17.0) g/dL Hct 42.6 (38.0-50.0) % MCV 90.6 (80.0-98.0) fL MCH 30.9 (27.0-32.0) pg MCHC 34.0 (31.0-37.0) g/dL RDW Std Deviation 42.8 (28.0-62.0) fl RDW Coeff of Didier 13 (11.0-15.0) % Plt Count 446 H (150-400) K/uL MPV 9.80 (7.40-12.00) fL Add Manual Diff YES Neutrophils % (Manual) 72 (48.0-80.0) % Band Neutrophils % 3 % Lymphocytes % (Manual) 21 (16.0-40.0) % Monocytes % (Manual) 4 (0.0-15.0) % Nucleated RBC % 0.0 /100WBC Absolute Seg Neuts 9.6 H (1.4-5.7) Band Neutrophils # 0.4 Lymphocytes # (Manual) 2.8 H (0.6-2.4) Monocytes # (Manual) 0.5 (0.0-0.8) Nucleated RBCs # 0 K/uL Sodium (136-148) mmol/L Potassium (3.5-5.1) mmol/L Chloride (98-107) mmol/L Carbon Dioxide (21.0-32.0) mmol/L BUN (7.0-18.0) mg/dL Creatinine (0.8-1.3) mg/dL Est Cr Clr Drug Dosing mL/min Estimated GFR (MDRD) ml/min Glucose (74-106) mg/dL POC Glucose 106 H 190 H (70-99) mg/dL Calcium (8.5-10.1) mg/dL Magnesium (1.8-2.4) mg/dL Total Bilirubin (0.2-1.0) mg/dL AST (15-37) IU/L ALT (14-63) IU/L Alkaline Phosphatase (46-116) U/L Total Protein (6.4-8.2) g/dL Albumin (3.4-5.0) g/dL Globulin (2.6-4.0) g/dL Albumin/Globulin Ratio (0.9-1.6) 11/07/20 11/07/20 Range/Units 06:10 09:49 WBC (4.0-11.0) K/uL RBC (4.50-5.90) M/uL Hgb (13.0-17.0) g/dL Hct (38.0-50.0) % MCV (80.0-98.0) fL MCH (27.0-32.0) pg MCHC (31.0-37.0) g/dL RDW Std Deviation (28.0-62.0) fl RDW Coeff of Didier (11.0-15.0) % Plt Count (150-400) K/uL MPV (7.40-12.00) fL Add Manual Diff Neutrophils % (Manual) (48.0-80.0) % Band Neutrophils % % Lymphocytes % (Manual) (16.0-40.0) % Monocytes % (Manual) (0.0-15.0) % Nucleated RBC % /100WBC Absolute Seg Neuts (1.4-5.7) Band Neutrophils # Lymphocytes # (Manual) (0.6-2.4) Monocytes # (Manual) (0.0-0.8) Nucleated RBCs # K/uL Sodium 142 (136-148) mmol/L Potassium 4.3 (3.5-5.1) mmol/L Chloride 107 (98-107) mmol/L Carbon Dioxide 27.8 (21.0-32.0) mmol/L BUN 13 (7.0-18.0) mg/dL Creatinine 0.9 (0.8-1.3) mg/dL Est Cr Clr Drug Dosing 138.27 mL/min Estimated GFR (MDRD) > 60.0 ml/min Glucose 145 H (74-106) mg/dL POC Glucose 136 H (70-99) mg/dL Calcium 8.8 (8.5-10.1) mg/dL Magnesium 2.3 (1.8-2.4) mg/dL Total Bilirubin 0.4 (0.2-1.0) mg/dL AST 22 (15-37) IU/L ALT 40 (14-63) IU/L Alkaline Phosphatase 63 (46-116) U/L Total Protein 7.0 (6.4-8.2) g/dL Albumin 2.8 L (3.4-5.0) g/dL Globulin 4.2 H (2.6-4.0) g/dL Albumin/Globulin Ratio 0.7 L (0.9-1.6) Med Orders - Current: Current Medications Acetaminophen (Acetaminophen 325 Mg Tab) 650 mg PO Q4H PRN PRN Reason: Pain (Mild 1-3)/fever Albuterol/Ipratropium (Albuterol/Ipratropium 3.0-0.5 Mg/3 Ml Neb Soln) 3 ml NEB Q4HRRT PRN PRN Reason: Shortness Of Breath/wheezing Albuterol/Ipratropium (Albuterol/Ipratropium 4 Gm Inhalation [place]) 0 gm INH Q4H MARIAH Last Admin: 11/07/20 11:59 Dose: 1 puff Documented by: Dexamethasone (Dexamethasone 4 Mg Tab) 6 mg PO DAILY [facility] Last Admin: 11/07/20 09:34 Dose: 6 mg Documented by: Dextrose/Water (50% Dextrose In Water 50 Ml Syringe) 50 ml IVPUSH ASDIRECTED PRN PRN Reason: Hypoglycemia Enoxaparin Sodium (Enoxaparin 40 Mg/0.4 Ml Syringe) 40 mg SUBCUT Q24H [facility] Last Admin: 11/06/20 23:26 Dose: 40 mg Documented by: Glucagon (Glucagon,Human Recombinant 1 Mg Vial) 1 mg IM ASDIRECTED PRN PRN Reason: Hypoglycemia Levofloxacin/Dextrose 750 mg/ (Premix) 150 mls @ 100 mls/hr IV Q24H [facility] Last Admin: 11/06/20 23:27 Dose: 100 mls/hr Documented by: Remdesivir 100 mg/ Sodium (Chloride) 100 mls @ 100 mls/hr IV Q24H [facility] Stop: 11/09/20 23:59 Last Admin: 11/06/20 22:06 Dose: 100 mls/hr Documented by: Insulin Aspart (Insulin Aspart 100 Units/Ml 3 Ml Pen) 0 unit SUBCUT TIDAC [facility]; Protocol Last Admin: 11/07/20 10:05 Dose: Not Given Documented by: Ondansetron HCl (Ondansetron 4 Mg/2 Ml Sdv) 4 mg IVPUSH Q4H PRN PRN Reason: Nausea/Vomiting Pantoprazole Sodium (Pantoprazole 40 Mg Vial) 40 mg IV DAILY [facility] [place] Last Admin: 11/07/20 09:34 Dose: 40 mg Documented by: Sodium Chloride (Sodium Chloride 0.9% 2.5 Ml Syringe) 2.5 ml FLUSH ASDIRECTED PRN PRN Reason: Keep Vein Open Discontinued Medications Dexamethasone (Dexamethasone 10 Mg/Ml Sdv) 10 mg IVPUSH ONETIME ONE Stop: 11/05/20 22:44 Last Admin: 11/05/20 23:01 Dose: 10 mg Documented by: Remdesivir 200 mg/ Sodium (Chloride) 250 mls @ 250 mls/hr IV ONETIME ONE Stop: 11/05/20 22:44 Last Admin: 11/05/20 23:17 Dose: 250 mls/hr Documented by: Remdesivir 100 mg/ Sodium (Chloride) 100 mls @ 100 mls/hr IV Q24H [facility]IAH Stop: 11/09/20 09:59 - Exam Quality Assessment: Supplemental Oxygen General: Alert, Oriented Neck: Supple Lungs: Normal Respiratory Effort, Decreased Breath Sounds, Rales Cardiovascular: Regular Rate, Regular Rhythm, No Murmurs GI/Abdominal Exam: Normal Bowel Sounds, Soft, Non-Tender - Patient Data Lab Results Last 24 hrs: Laboratory Results - last 24 hr 11/06/20 11/06/20 11/07/20 Range/Units 12:58 18:19 06:10 WBC 13.33 H (4.0-11.0) K/uL RBC 4.70 (4.50-5.90) M/uL Hgb 14.5 (13.0-17.0) g/dL Hct 42.6 (38.0-50.0) % MCV 90.6 (80.0-98.0) fL MCH 30.9 (27.0-32.0) pg MCHC 34.0 (31.0-37.0) g/dL RDW Std Deviation 42.8 (28.0-62.0) fl RDW Coeff of Didier 13 (11.0-15.0) % Plt Count 446 H (150-400) K/uL MPV 9.80 (7.40-12.00) fL Add Manual Diff YES Neutrophils % (Manual) 72 (48.0-80.0) % Band Neutrophils % 3 % Lymphocytes % (Manual) 21 (16.0-40.0) % Monocytes % (Manual) 4 (0.0-15.0) % Nucleated RBC % 0.0 /100WBC Absolute Seg Neuts 9.6 H (1.4-5.7) Band Neutrophils # 0.4 Lymphocytes # (Manual) 2.8 H (0.6-2.4) Monocytes # (Manual) 0.5 (0.0-0.8) Nucleated RBCs # 0 K/uL Sodium (136-148) mmol/L Potassium (3.5-5.1) mmol/L Chloride (98-107) mmol/L Carbon Dioxide (21.0-32.0) mmol/L BUN (7.0-18.0) mg/dL Creatinine (0.8-1.3) mg/dL Est Cr Clr Drug Dosing mL/min Estimated GFR (MDRD) ml/min Glucose (74-106) mg/dL POC Glucose 106 H 190 H (70-99) mg/dL Calcium (8.5-10.1) mg/dL Magnesium (1.8-2.4) mg/dL Total Bilirubin (0.2-1.0) mg/dL AST (15-37) IU/L ALT (14-63) IU/L Alkaline Phosphatase (46-116) U/L Total Protein (6.4-8.2) g/dL Albumin (3.4-5.0) g/dL Globulin (2.6-4.0) g/dL Albumin/Globulin Ratio (0.9-1.6) 11/07/20 11/07/20 Range/Units 06:10 09:49 WBC (4.0-11.0) K/uL RBC (4.50-5.90) M/uL Hgb (13.0-17.0) g/dL Hct (38.0-50.0) % MCV (80.0-98.0) fL MCH (27.0-32.0) pg MCHC (31.0-37.0) g/dL RDW Std Deviation (28.0-62.0) fl RDW Coeff of Didier (11.0-15.0) % Plt Count (150-400) K/uL MPV (7.40-12.00) fL Add Manual Diff Neutrophils % (Manual) (48.0-80.0) % Band Neutrophils % % Lymphocytes % (Manual) (16.0-40.0) % Monocytes % (Manual) (0.0-15.0) % Nucleated RBC % /100WBC Absolute Seg Neuts (1.4-5.7) Band Neutrophils # Lymphocytes # (Manual) (0.6-2.4) Monocytes # (Manual) (0.0-0.8) Nucleated RBCs # K/uL Sodium 142 (136-148) mmol/L Potassium 4.3 (3.5-5.1) mmol/L Chloride 107 (98-107) mmol/L Carbon Dioxide 27.8 (21.0-32.0) mmol/L BUN 13 (7.0-18.0) mg/dL Creatinine 0.9 (0.8-1.3) mg/dL Est Cr Clr Drug Dosing 138.27 mL/min Estimated GFR (MDRD) > 60.0 ml/min Glucose 145 H (74-106) mg/dL POC Glucose 136 H (70-99) mg/dL Calcium 8.8 (8.5-10.1) mg/dL Magnesium 2.3 (1.8-2.4) mg/dL Total Bilirubin 0.4 (0.2-1.0) mg/dL AST 22 (15-37) IU/L ALT 40 (14-63) IU/L Alkaline Phosphatase 63 (46-116) U/L Total Protein 7.0 (6.4-8.2) g/dL Albumin 2.8 L (3.4-5.0) g/dL Globulin 4.2 H (2.6-4.0) g/dL Albumin/Globulin Ratio 0.7 L (0.9-1.6) Result Diagrams: 11/07/20 06:10 11/07/20 06:10 Sepsis Event Note - Evaluation Sepsis Screening Result: No Definite Risk - Focused Exam Vital Signs: Vital Signs Temp Pulse Resp BP Pulse Ox 11/07/20 10:00 36.3 C 74 18 122/74 92 L 11/07/20 06:00 36.4 C 76 18 118/79 92 L - Problem List Review Problem List Initiated/Reviewed/Updated: Yes - My Orders Last 24 Hours: My Active Orders 11/06/20 23:00 Remdesivir 100 mg Sodium Chloride 0.9% [Normal Saline] 100 ml IV Q24H - Plan Plan:: This 29 year old male admitted with acute hypoxic respiratory failure, COVID 10, CAP 1. Acute hypoxic respiratory failure/COVID 19/CAP - Continue oxygen to keep sats greater than 92%, wean as possible, currently on 1 L of oxygen - Encourage IS, Acapella and proning - Continue Remdesivir 100 mg x 4 days - Continue Dexamethasone 6 mg PO daily - Lovenox 40 mg daily - Combivent inhaler PRN - Levaquin 750 mg IV daily for CAP - Monitor LFTs during remdesivir treatment 2. New onset DM Type 2 - Monitor BS TIDAC - Novolog SSI - DM education to be consulted. VTE prophylaxis: Lovenox GI prophylaxis: Protonix CODE STATUS: Full Code Dispo: 2-3 days pending improvement
[2020-11-07] MEDS: REMDESIVIR 100 MG in Sodium Chloride 0.9% 100 ML IV SCH (22:11)
[2020-11-07] MEDS: Levofloxacin/Dextrose 5%-Water 750 MG in Premix Bag 1 BAG IV SCH (23:28)
[2020-11-07] MEDS: Enoxaparin 40 MG/0.4 ML Syringe SUBCUT SCH (23:28)
[2020-11-08] MEDS: Albuterol/Ipratropium 4 GM Inhalation Spray INH SCH ×6 (03:31→23:36)
[2020-11-08 07:06] LABS: BLOOD UREA NITROGEN,BUN 17 mg/dL (7.0-18.0); CARBON DIOXIDE,CO2 27.3 mmol/L (21.0-32.0); CHLORIDE,CL 107 mmol/L (98-107); GLUCOSE RANDOM 141 mg/dL (74-106); POTASSIUM,K 4.6 mmol/L (3.5-5.1); SODIUM,NA 141 mmol/L (136-148)
[2020-11-08] MEDS: Insulin Aspart 100 Units/ML 3 ML Pen SUBCUT SCH ×3 (07:09→17:27)
[2020-11-08] MEDS: Pantoprazole 40 MG Vial IV SCH (08:03)
[2020-11-08] MEDS: Dexamethasone 4 MG Tab PO SCH (08:03)
--- NOTE | 2020-11-08 13:42 | PCM.PN ---
- General Info Date of Service: 11/08/20 Admission Dx/Problem (Free Text): Admission Diagnosis/Problem Admission Diagnosis/Problem Hypoxia Subjective Update: Patient seen and examined at bedside, resting comfortably no acute distress. On room air at rest but is still dipping to 88% on ambulation Functional Status: Reports: Tolerating Diet, Ambulating, Urinating - Review of Systems General: Denies: Fever, Weakness, Fatigue Pulmonary: Denies: Shortness of Breath, Pleuritic Chest Pain, Cough, Sputum Cardiovascular: Reports: Dyspnea on Exertion. Denies: Chest Pain, Palpitations, Orthopnea Gastrointestinal: Denies: Abdominal Pain, Constipation, Decreased Appetite Genitourinary: Denies: Dysuria, Frequency, Burning Musculoskeletal: Denies: Neck Pain, Shoulder Pain, Arm Pain Skin: Denies: Cyanosis, Jaundice, Mottled - Patient Data Vitals - Most Recent: Last Vital Signs Temp 36.4 C 11/08/20 11:30 Pulse 93 11/08/20 11:30 Resp 20 11/08/20 11:30 BP 125/63 11/08/20 11:30 Pulse Ox 93 L 11/08/20 11:30 Weight - Most Recent: 156.58 kg I&O - Last 24 Hours: Intake & Output 11/07/20 11/08/20 11/08/20 22:59 06:59 14:59 Intake Total 2200 2750 Output Total 1760 1800 Balance 440 950 Lab Results Last 24 Hours: Laboratory Results - last 24 hr 11/07/20 11/07/20 11/08/20 Range/Units 12:31 16:39 06:10 WBC 15.38 H (4.0-11.0) K/uL RBC 4.61 (4.50-5.90) M/uL Hgb 13.9 (13.0-17.0) g/dL Hct 41.6 (38.0-50.0) % MCV 90.2 (80.0-98.0) fL MCH 30.2 (27.0-32.0) pg MCHC 33.4 (31.0-37.0) g/dL RDW Std Deviation 42.3 (28.0-62.0) fl RDW Coeff of Didier 13 (11.0-15.0) % Plt Count 477 H (150-400) K/uL MPV 9.50 (7.40-12.00) fL Add Manual Diff YES Neutrophils % (Manual) 77 (48.0-80.0) % Band Neutrophils % 2 % Lymphocytes % (Manual) 16 (16.0-40.0) % Monocytes % (Manual) 5 (0.0-15.0) % Nucleated RBC % 0.0 /100WBC Absolute Seg Neuts 11.8 H (1.4-5.7) Band Neutrophils # 0.3 Lymphocytes # (Manual) 2.5 H (0.6-2.4) Monocytes # (Manual) 0.8 (0.0-0.8) Nucleated RBCs # 0 K/uL Sodium (136-148) mmol/L Potassium (3.5-5.1) mmol/L Chloride (98-107) mmol/L Carbon Dioxide (21.0-32.0) mmol/L BUN (7.0-18.0) mg/dL Creatinine (0.8-1.3) mg/dL Est Cr Clr Drug Dosing mL/min Estimated GFR (MDRD) ml/min Glucose (74-106) mg/dL POC Glucose 170 H 213 H (70-99) mg/dL Calcium (8.5-10.1) mg/dL Total Bilirubin (0.2-1.0) mg/dL AST (15-37) IU/L ALT (14-63) IU/L Alkaline Phosphatase (46-116) U/L Total Protein (6.4-8.2) g/dL Albumin (3.4-5.0) g/dL Globulin (2.6-4.0) g/dL Albumin/Globulin Ratio (0.9-1.6) 11/08/20 11/08/20 11/08/20 Range/Units 06:10 06:42 11:51 WBC (4.0-11.0) K/uL RBC (4.50-5.90) M/uL Hgb (13.0-17.0) g/dL Hct (38.0-50.0) % MCV (80.0-98.0) fL MCH (27.0-32.0) pg MCHC (31.0-37.0) g/dL RDW Std Deviation (28.0-62.0) fl RDW Coeff of Didier (11.0-15.0) % Plt Count (150-400) K/uL MPV (7.40-12.00) fL Add Manual Diff Neutrophils % (Manual) (48.0-80.0) % Band Neutrophils % % Lymphocytes % (Manual) (16.0-40.0) % Monocytes % (Manual) (0.0-15.0) % Nucleated RBC % /100WBC Absolute Seg Neuts (1.4-5.7) Band Neutrophils # Lymphocytes # (Manual) (0.6-2.4) Monocytes # (Manual) (0.0-0.8) Nucleated RBCs # K/uL Sodium 141 (136-148) mmol/L Potassium 4.6 (3.5-5.1) mmol/L Chloride 107 (98-107) mmol/L Carbon Dioxide 27.3 (21.0-32.0) mmol/L BUN 17 (7.0-18.0) mg/dL Creatinine 1.0 (0.8-1.3) mg/dL Est Cr Clr Drug Dosing 124.44 mL/min Estimated GFR (MDRD) > 60.0 ml/min Glucose 141 H (74-106) mg/dL POC Glucose 139 H 153 H (70-99) mg/dL Calcium 8.3 L (8.5-10.1) mg/dL Total Bilirubin 0.4 (0.2-1.0) mg/dL AST 23 (15-37) IU/L ALT 38 (14-63) IU/L Alkaline Phosphatase 56 (46-116) U/L Total Protein 6.4 (6.4-8.2) g/dL Albumin 2.5 L (3.4-5.0) g/dL Globulin 3.9 (2.6-4.0) g/dL Albumin/Globulin Ratio 0.6 L (0.9-1.6) Med Orders - Current: Current Medications Acetaminophen (Acetaminophen 325 Mg Tab) 650 mg PO Q4H PRN PRN Reason: Pain (Mild 1-3)/fever Albuterol/Ipratropium (Albuterol/Ipratropium 3.0-0.5 Mg/3 Ml Neb Soln) 3 ml NEB Q4HRRT PRN PRN Reason: Shortness Of Breath/wheezing Albuterol/Ipratropium (Albuterol/Ipratropium 4 Gm Inhalation [place]) 0 gm INH Q4H [facility] Last Admin: 11/08/20 11:42 Dose: 1 puff Documented by: Dexamethasone (Dexamethasone 4 Mg Tab) 6 mg PO DAILY [facility] Last Admin: 11/08/20 08:03 Dose: 6 mg Documented by: Dextrose/Water (50% Dextrose In Water 50 Ml Syringe) 50 ml IVPUSH ASDIRECTED PRN PRN Reason: Hypoglycemia Enoxaparin Sodium (Enoxaparin 40 Mg/0.4 Ml Syringe) 40 mg SUBCUT Q24H [facility] Last Admin: 11/07/20 23:28 Dose: 40 mg Documented by: Glucagon (Glucagon,Human Recombinant 1 Mg Vial) 1 mg IM ASDIRECTED PRN PRN Reason: Hypoglycemia Levofloxacin/Dextrose 750 mg/ (Premix) 150 mls @ 100 mls/hr IV Q24H [facility] Last Admin: 11/07/20 23:28 Dose: 100 mls/hr Documented by: Remdesivir 100 mg/ Sodium (Chloride) 100 mls @ 100 mls/hr IV Q24H [facility] Stop: 11/09/20 23:59 Last Admin: 11/07/20 22:11 Dose: 100 mls/hr Documented by: Insulin Aspart (Insulin Aspart 100 Units/Ml 3 Ml Pen) 0 unit SUBCUT TIDAC [facility]; Protocol Last Admin: 11/08/20 12:00 Dose: 2 unit Documented by: Ondansetron HCl (Ondansetron 4 Mg/2 Ml Sdv) 4 mg IVPUSH Q4H PRN PRN Reason: Nausea/Vomiting Pantoprazole Sodium (Pantoprazole 40 Mg Vial) 40 mg IV DAILY [facility] Last Admin: 11/08/20 08:03 Dose: 40 mg Documented by: Sodium Chloride (Sodium Chloride 0.9% 2.5 Ml Syringe) 2.5 ml FLUSH ASDIRECTED PRN PRN Reason: Keep Vein Open Discontinued Medications Dexamethasone (Dexamethasone 10 Mg/Ml Sdv) 10 mg IVPUSH ONETIME ONE Stop: 11/05/20 22:44 Last Admin: 11/05/20 23:01 Dose: 10 mg Documented by: Remdesivir 200 mg/ Sodium (Chloride) 250 mls @ 250 mls/hr IV ONETIME ONE Stop: 11/05/20 22:44 Last Admin: 11/05/20 23:17 Dose: 250 mls/hr Documented by: Remdesivir 100 mg/ Sodium (Chloride) 100 mls @ 100 mls/hr IV Q24H [facility] Stop: 11/09/20 09:59 - Exam General: Alert, Oriented Neck: Supple Lungs: Clear to Auscultation, Normal Respiratory Effort GI/Abdominal Exam: Normal Bowel Sounds, Soft, Non-Tender - Patient Data Lab Results Last 24 hrs: Laboratory Results - last 24 hr 11/07/20 11/07/20 11/08/20 Range/Units 12:31 16:39 06:10 WBC 15.38 H (4.0-11.0) K/uL RBC 4.61 (4.50-5.90) M/uL Hgb 13.9 (13.0-17.0) g/dL Hct 41.6 (38.0-50.0) % MCV 90.2 (80.0-98.0) fL MCH 30.2 (27.0-32.0) pg MCHC 33.4 (31.0-37.0) g/dL RDW Std Deviation 42.3 (28.0-62.0) fl RDW Coeff of Didier 13 (11.0-15.0) % Plt Count 477 H (150-400) K/uL MPV 9.50 (7.40-12.00) fL Add Manual Diff YES Neutrophils % (Manual) 77 (48.0-80.0) % Band Neutrophils % 2 % Lymphocytes % (Manual) 16 (16.0-40.0) % Monocytes % (Manual) 5 (0.0-15.0) % Nucleated RBC % 0.0 /100WBC Absolute Seg Neuts 11.8 H (1.4-5.7) Band Neutrophils # 0.3 Lymphocytes # (Manual) 2.5 H (0.6-2.4) Monocytes # (Manual) 0.8 (0.0-0.8) Nucleated RBCs # 0 K/uL Sodium (136-148) mmol/L Potassium (3.5-5.1) mmol/L Chloride (98-107) mmol/L Carbon Dioxide (21.0-32.0) mmol/L BUN (7.0-18.0) mg/dL Creatinine (0.8-1.3) mg/dL Est Cr Clr Drug Dosing mL/min Estimated GFR (MDRD) ml/min Glucose (74-106) mg/dL POC Glucose 170 H 213 H (70-99) mg/dL Calcium (8.5-10.1) mg/dL Total Bilirubin (0.2-1.0) mg/dL AST (15-37) IU/L ALT (14-63) IU/L Alkaline Phosphatase (46-116) U/L Total Protein (6.4-8.2) g/dL Albumin (3.4-5.0) g/dL Globulin (2.6-4.0) g/dL Albumin/Globulin Ratio (0.9-1.6) 11/08/20 11/08/20 11/08/20 Range/Units 06:10 06:42 11:51 WBC (4.0-11.0) K/uL RBC (4.50-5.90) M/uL Hgb (13.0-17.0) g/dL Hct (38.0-50.0) % MCV (80.0-98.0) fL MCH (27.0-32.0) pg MCHC (31.0-37.0) g/dL RDW Std Deviation (28.0-62.0) fl RDW Coeff of Didier (11.0-15.0) % Plt Count (150-400) K/uL MPV (7.40-12.00) fL Add Manual Diff Neutrophils % (Manual) (48.0-80.0) % Band Neutrophils % % Lymphocytes % (Manual) (16.0-40.0) % Monocytes % (Manual) (0.0-15.0) % Nucleated RBC % /100WBC Absolute Seg Neuts (1.4-5.7) Band Neutrophils # Lymphocytes # (Manual) (0.6-2.4) Monocytes # (Manual) (0.0-0.8) Nucleated RBCs # K/uL Sodium 141 (136-148) mmol/L Potassium 4.6 (3.5-5.1) mmol/L Chloride 107 (98-107) mmol/L Carbon Dioxide 27.3 (21.0-32.0) mmol/L BUN 17 (7.0-18.0) mg/dL Creatinine 1.0 (0.8-1.3) mg/dL Est Cr Clr Drug Dosing 124.44 mL/min Estimated GFR (MDRD) > 60.0 ml/min Glucose 141 H (74-106) mg/dL POC Glucose 139 H 153 H (70-99) mg/dL Calcium 8.3 L (8.5-10.1) mg/dL Total Bilirubin 0.4 (0.2-1.0) mg/dL AST 23 (15-37) IU/L ALT 38 (14-63) IU/L Alkaline Phosphatase 56 (46-116) U/L Total Protein 6.4 (6.4-8.2) g/dL Albumin 2.5 L (3.4-5.0) g/dL Globulin 3.9 (2.6-4.0) g/dL Albumin/Globulin Ratio 0.6 L (0.9-1.6) Result Diagrams: 11/08/20 06:10 11/08/20 06:10 Sepsis Event Note - Evaluation Sepsis Screening Result: No Definite Risk - Focused Exam Vital Signs: Vital Signs Temp Pulse Resp BP Pulse Ox 11/08/20 11:30 36.4 C 93 20 125/63 93 L 11/08/20 08:00 36.5 C 68 20 116/83 91 L 11/08/20 04:00 36.7 C 55 L 17 120/52 L 94 L - Problem List Review Problem List Initiated/Reviewed/Updated: Yes - My Orders Last 24 Hours: My Active Orders 11/07/20 13:38 Accu Check [Blood Glucose Check, Bedside] [RC] TIDMEALS - Plan Plan:: This 29 year old male admitted with acute hypoxic respiratory failure, COVID 10, CAP 1. Acute hypoxic respiratory failure/COVID 19/CAP - Continue oxygen to keep sats greater than 92%, currently on room air - Encourage IS, Acapella and proning, breath sounds are much more clear - Continue Remdesivir 100 mg x 4 days - Continue Dexamethasone 6 mg PO daily - Lovenox 40 mg daily - Combivent inhaler PRN - Levaquin 750 mg IV daily for CAP - Monitor LFTs during remdesivir treatment 2. New onset DM Type 2 - Monitor BS TIDAC - Novolog SSI - DM education to be consulted. VTE prophylaxis: Lovenox GI prophylaxis: Protonix CODE STATUS: Full Code Dispo: 2-3 days pending improvement
[2020-11-08] MEDS: REMDESIVIR 100 MG in Sodium Chloride 0.9% 100 ML IV SCH (22:16)
[2020-11-08] MEDS: Levofloxacin/Dextrose 5%-Water 750 MG in Premix Bag 1 BAG IV SCH (23:32)
[2020-11-08] MEDS: Enoxaparin 40 MG/0.4 ML Syringe SUBCUT SCH (23:33)
[2020-11-09] MEDS: Albuterol/Ipratropium 4 GM Inhalation Spray INH SCH ×3 (03:58→11:18)
[2020-11-09 06:24] LABS: BLOOD UREA NITROGEN,BUN 17 mg/dL (7.0-18.0); CARBON DIOXIDE,CO2 25.8 mmol/L (21.0-32.0); CHLORIDE,CL 105 mmol/L (98-107); GLUCOSE RANDOM 129 mg/dL (74-106); POTASSIUM,K 4.3 mmol/L (3.5-5.1); SODIUM,NA 139 mmol/L (136-148)
[2020-11-09] MEDS: Insulin Aspart 100 Units/ML 3 ML Pen SUBCUT SCH ×2 (07:25→11:17)
[2020-11-09] MEDS: Pantoprazole 40 MG Vial IV SCH (08:04)
[2020-11-09] MEDS: Dexamethasone 4 MG Tab PO SCH (08:04)
--- NOTE | 2020-11-09 12:20 | PCM.DCSUM1 ---
<Velasquez Hernandez - Last Filed: 11/09/20 13:45> Discharge Summary - Discharge Data Discharge Date: 11/09/20 Discharge Disposition: Home, Self-Care 01 Condition: Stable - Referral to Home Health Primary Care Physician: PCP None - Patient Summary/Data Consults: Consultations 11/06/20 12:49 Consult to DM [Consult to Diabetic Nurse Specialist] [CONS] Routine - Patient Instructions Diet: Usual Diet as Tolerated Activity: As Tolerated Driving: May Drive Today, Do Not Drive Showering/Bathing: May Shower Other/Special Instructions: If you experience increased shortness of breath please seek medical attention. - Discharge Plan *PRESCRIPTION DRUG MONITORING PROGRAM REVIEWED*: Not Applicable *COPY OF PRESCRIPTION DRUG MONITORING REPORT IN PATIENT YASMINE: Not Applicable Prescriptions/Med Rec: Albuterol Sulfate [Albuterol Sulfate HFA] 8.5 gm INH Q4HR PRN #1 ea PRN Reason: Shortness Of Breath dexAMETHasone [Dexamethasone] 6 mg PO DAILY 6 Days tablet Levofloxacin 750 mg PO DAILY #3 tablet Home Medications: Home Meds Albuterol Sulfate [Albuterol Sulfate HFA] 8.5 gm INH Q4HR PRN #1 ea 11/09/20 [Rx] Levofloxacin 750 mg PO DAILY #3 tablet 11/09/20 [Rx] dexAMETHasone [Dexamethasone] 6 mg PO DAILY 6 Days tablet 11/09/20 [Rx] Patient Handouts: COVID-19 Frequently Asked Questions, COVID-19, Albuterol inhalation aerosol, COVID-19: How to Protect Yourself and Others - [facility], Levofloxacin tablets, Dexamethasone tablets Referrals: Melly Jay PA [Physician Senior Investigator] - 11/23/20 1:00 pm - Discharge Summary/Plan Comment DC Time >30 min.: Yes - General Info Date of Service: 11/09/20 Subjective Update: 29-year-old male with no past medical history presented to the ER ER with complaints of shortness of breath. Initially he started getting sick October 22 with upper respiratory symptoms along with loss of smell and taste fevers diarrhea. He tested positive for Covid on October 25. He subsequently quarantined at home but then a few days ago he again started having fevers and some shortness of breath. He came to the ER, oxygen saturations were normal. CTA of chest was completed was negative for any pulmonary embolism. He was discharged home but over the next 2 days shortness of breath significantly worsened to the point that he had a near syncopal episode while ambulating. When he arrived in the ER he was noted to be satting 86% on room air. He denied any further upper respiratory symptoms denies any neck pain. Denied any further abdominal pain and no diarrhea. He denied any tobacco use, recreational drug use and occasional social alcohol use. In the ER CBC within normal limits. Platelets 333,000 BMP essentially normal slightly elevated glucose. A1c checked 6.5. Liver functions within normal limits. Troponin negative. Cholesterol 150 LDL 96 HDL 18 triglycerides 178. TSH 1.19. Chest x-ray obtained which revealed moderate nodule airspace infiltrates present bilaterally and significantly increased from previous exam. Patient was treated with remdesivir 200 mg bolus along with 10 mg IV dexamethasone in the ER. He was admitted for for acute hypoxic respiratory failure, COVID-19, and CAP. Patient was placed on the Covid protocol and over the next 3 days his clinical status improved. He was weaned down to room air and was able to ambulate without dropping his oxygen saturation. He completed 5-day course of remdesivir during his admission. He was also on levofloxacin 750 mg daily for CAP. He was also on dexamethasone. He will be discharged with 6 days of dexamethasone to complete a 10-day course. He will be discharged with 3 days of levofloxacin to complete a 7-day course. He will also get albuterol as needed. Patient found to be prediabetic and needs outpatient follow-up. - Review of Systems General: Reports: Weakness. Denies: Fever HEENT: Denies: Sore Throat, Rhinitis Pulmonary: Reports: Shortness of Breath. Denies: Cough, Hemoptysis Cardiovascular: Denies: Chest Pain, Palpitations, Edema Gastrointestinal: Denies: Abdominal Pain, Constipation, Diarrhea, Nausea, Vomiting Genitourinary: Denies: Dysuria Musculoskeletal: Denies: Neck Pain, Shoulder Pain, Leg Pain, Joint Pain, Joint Swelling Skin: Reports: No Symptoms Neurological: Reports: No Symptoms - Patient Data Vitals - Most Recent: Last Vital Signs Temp 97.0 F 11/09/20 11:22 Pulse 60 11/09/20 11:22 Resp 20 11/09/20 11:22 BP 115/65 11/09/20 11:22 Pulse Ox 95 11/09/20 11:22 Weight - Most Recent: 156.58 kg I&O - Last 24 hours: Intake & Output 11/08/20 11/09/20 11/09/20 22:59 06:59 14:59 Intake Total 1800 1410 Output Total 1825 1500 Balance - Lab Results - Last 24 hrs: Laboratory Results - last 24 hr 11/08/20 11/09/20 11/09/20 Range/Units 17:16 05:25 05:25 WBC 14.87 H (4.0-11.0) K/uL RBC 4.54 (4.50-5.90) M/uL Hgb 13.8 (13.0-17.0) g/dL Hct 41.0 (38.0-50.0) % MCV 90.3 (80.0-98.0) fL MCH 30.4 (27.0-32.0) pg MCHC 33.7 (31.0-37.0) g/dL RDW Std Deviation 42.3 (28.0-62.0) fl RDW Coeff of Didier 13 (11.0-15.0) % Plt Count 494 H (150-400) K/uL MPV 9.70 (7.40-12.00) fL Add Manual Diff YES Neutrophils % (Manual) 64 (48.0-80.0) % Band Neutrophils % 2 % Lymphocytes % (Manual) 23 (16.0-40.0) % Monocytes % (Manual) 11 (0.0-15.0) % Nucleated RBC % 0.0 /100WBC Absolute Seg Neuts 9.5 H (1.4-5.7) Band Neutrophils # 0.3 Lymphocytes # (Manual) 3.4 H (0.6-2.4) Monocytes # (Manual) 1.6 H (0.0-0.8) Nucleated RBCs # 0 K/uL Sodium 139 (136-148) mmol/L Potassium 4.3 (3.5-5.1) mmol/L Chloride 105 (98-107) mmol/L Carbon Dioxide 25.8 (21.0-32.0) mmol/L BUN 17 (7.0-18.0) mg/dL Creatinine 0.9 (0.8-1.3) mg/dL Est Cr Clr Drug Dosing 138.27 mL/min Estimated GFR (MDRD) > 60.0 ml/min Glucose 129 H (74-106) mg/dL POC Glucose 159 H (70-99) mg/dL Calcium 8.2 L (8.5-10.1) mg/dL Total Bilirubin 0.5 (0.2-1.0) mg/dL AST 28 (15-37) IU/L ALT 46 (14-63) IU/L Alkaline Phosphatase 58 (46-116) U/L Total Protein 6.3 L (6.4-8.2) g/dL Albumin 2.6 L (3.4-5.0) g/dL Globulin 3.7 (2.6-4.0) g/dL Albumin/Globulin Ratio 0.7 L (0.9-1.6) 11/09/20 11/09/20 Range/Units 06:37 11:10 WBC (4.0-11.0) K/uL RBC (4.50-5.90) M/uL Hgb (13.0-17.0) g/dL Hct (38.0-50.0) % MCV (80.0-98.0) fL MCH (27.0-32.0) pg MCHC (31.0-37.0) g/dL RDW Std Deviation (28.0-62.0) fl RDW Coeff of Didier (11.0-15.0) % Plt Count (150-400) K/uL MPV (7.40-12.00) fL Add Manual Diff Neutrophils % (Manual) (48.0-80.0) % Band Neutrophils % % Lymphocytes % (Manual) (16.0-40.0) % Monocytes % (Manual) (0.0-15.0) % Nucleated RBC % /100WBC Absolute Seg Neuts (1.4-5.7) Band Neutrophils # Lymphocytes # (Manual) (0.6-2.4) Monocytes # (Manual) (0.0-0.8) Nucleated RBCs # K/uL Sodium (136-148) mmol/L Potassium (3.5-5.1) mmol/L Chloride (98-107) mmol/L Carbon Dioxide (21.0-32.0) mmol/L BUN (7.0-18.0) mg/dL Creatinine (0.8-1.3) mg/dL Est Cr Clr Drug Dosing mL/min Estimated GFR (MDRD) ml/min Glucose (74-106) mg/dL POC Glucose 126 H 134 H (70-99) mg/dL Calcium (8.5-10.1) mg/dL Total Bilirubin (0.2-1.0) mg/dL AST (15-37) IU/L ALT (14-63) IU/L Alkaline Phosphatase (46-116) U/L Total Protein (6.4-8.2) g/dL Albumin (3.4-5.0) g/dL Globulin (2.6-4.0) g/dL Albumin/Globulin Ratio (0.9-1.6) Med Orders - Current: Current Medications Acetaminophen (Acetaminophen 325 Mg Tab) 650 mg PO Q4H PRN PRN Reason: Pain (Mild 1-3)/fever Albuterol/Ipratropium (Albuterol/Ipratropium 3.0-0.5 Mg/3 Ml Neb Soln) 3 ml NEB Q4HRRT PRN PRN Reason: Shortness Of Breath/wheezing Albuterol/Ipratropium (Albuterol/Ipratropium 4 Gm Inhalation [place]) 0 gm INH Q4H [facility] Last Admin: 11/09/20 11:18 Dose: 1 puff Documented by: Dexamethasone (Dexamethasone 4 Mg Tab) 6 mg PO DAILY [facility] Last Admin: 11/09/20 08:04 Dose: 6 mg Documented by: Dextrose/Water (50% Dextrose In Water 50 Ml Syringe) 50 ml IVPUSH ASDIRECTED PRN PRN Reason: Hypoglycemia Enoxaparin Sodium (Enoxaparin 40 Mg/0.4 Ml Syringe) 40 mg SUBCUT Q24H [facility] Last Admin: 11/08/20 23:33 Dose: 40 mg Documented by: Glucagon (Glucagon,Human Recombinant 1 Mg Vial) 1 mg IM ASDIRECTED PRN PRN Reason: Hypoglycemia Levofloxacin/Dextrose 750 mg/ (Premix) 150 mls @ 100 mls/hr IV Q24H [facility] Last Admin: 11/08/20 23:32 Dose: 100 mls/hr Documented by: Remdesivir 100 mg/ Sodium (Chloride) 100 mls @ 100 mls/hr IV Q24H [facility] Stop: 11/09/20 14:59 Insulin Aspart (Insulin Aspart 100 Units/Ml 3 Ml Pen) 0 unit SUBCUT TIDAC [facility]; Protocol Last Admin: 11/09/20 11:17 Dose: Not Given Documented by: Ondansetron HCl (Ondansetron 4 Mg/2 Ml Sdv) 4 mg IVPUSH Q4H PRN PRN Reason: Nausea/Vomiting Pantoprazole Sodium (Pantoprazole 40 Mg Vial) 40 mg IV DAILY [facility] Last Admin: 11/09/20 08:04 Dose: 40 mg Documented by: Sodium Chloride (Sodium Chloride 0.9% 2.5 Ml Syringe) 2.5 ml FLUSH ASDIRECTED PRN PRN Reason: Keep Vein Open Discontinued Medications Dexamethasone (Dexamethasone 10 Mg/Ml Sdv) 10 mg IVPUSH ONETIME ONE Stop: 11/05/20 22:44 Last Admin: 11/05/20 23:01 Dose: 10 mg Documented by: Remdesivir 200 mg/ Sodium (Chloride) 250 mls @ 250 mls/hr IV ONETIME ONE Stop: 11/05/20 22:44 Last Admin: 11/05/20 23:17 Dose: 250 mls/hr Documented by: Remdesivir 100 mg/ Sodium (Chloride) 100 mls @ 100 mls/hr IV Q24H [facility] Stop: 11/09/20 09:59 Remdesivir 100 mg/ Sodium (Chloride) 100 mls @ 100 mls/hr IV Q24H [facility] Stop: 11/09/20 23:59 Last Admin: 11/08/20 22:16 Dose: 100 mls/hr Documented by: - Exam General: Reports: Alert, Oriented, Cooperative, No Acute Distress Neck: Reports: Supple Lungs: Reports: Clear to Auscultation. Denies: Crackles, Rales, Wheezing Cardiovascular: Reports: Regular Rate, Regular Rhythm, No Murmurs GI/Abdominal Exam: Soft, Non-Tender, No Distention <Dillon,Hooria - Last Filed: 11/09/20 20:18> Discharge Summary - Referral to Home Health Primary Care Physician: PCP None - Patient Summary/Data Consults: Consultations 11/06/20 12:49 Consult to DM [Consult to Diabetic Nurse Specialist] [CONS] Routine - Discharge Summary/Plan Comment Discharge Summary/Plan Comment: I have seen and evaluated the patient and agree with the residents note unless specified in my note - Patient Data Vitals - Most Recent: Last Vital Signs Temp 36.1 C 11/09/20 11:22 Pulse 60 11/09/20 11:22 Resp 20 11/09/20 11:22 BP 115/65 11/09/20 11:22 Pulse Ox 95 11/09/20 11:22 I&O - Last 24 hours: Intake & Output 11/09/20 11/09/20 11/09/20 06:59 14:59 22:59 Intake Total 1410 2520 Output Total 1500 2255 Balance -90 265 Lab Results - Last 24 hrs: Laboratory Results - last 24 hr 11/09/20 11/09/20 11/09/20 Range/Units 05:25 05:25 06:37 WBC 14.87 H (4.0-11.0) K/uL RBC 4.54 (4.50-5.90) M/uL Hgb 13.8 (13.0-17.0) g/dL Hct 41.0 (38.0-50.0) % MCV 90.3 (80.0-98.0) fL MCH 30.4 (27.0-32.0) pg MCHC 33.7 (31.0-37.0) g/dL RDW Std Deviation 42.3 (28.0-62.0) fl RDW Coeff of [place]ier 13 (11.0-15.0) % Plt Count 494 H (150-400) K/uL MPV 9.70 (7.40-12.00) fL Add Manual Diff YES Neutrophils % (Manual) 64 (48.0-80.0) % Band Neutrophils % 2 % Lymphocytes % (Manual) 23 (16.0-40.0) % Monocytes % (Manual) 11 (0.0-15.0) % Nucleated RBC % 0.0 /100WBC Absolute Seg Neuts 9.5 H (1.4-5.7) Band Neutrophils # 0.3 Lymphocytes # (Manual) 3.4 H (0.6-2.4) Monocytes # (Manual) 1.6 H (0.0-0.8) Nucleated RBCs # 0 K/uL Sodium 139 (136-148) mmol/L Potassium 4.3 (3.5-5.1) mmol/L Chloride 105 (98-107) mmol/L Carbon Dioxide 25.8 (21.0-32.0) mmol/L BUN 17 (7.0-18.0) mg/dL Creatinine 0.9 (0.8-1.3) mg/dL Est Cr Clr Drug Dosing 138.27 mL/min Estimated GFR (MDRD) > 60.0 ml/min Glucose 129 H (74-106) mg/dL POC Glucose 126 H (70-99) mg/dL Calcium 8.2 L (8.5-10.1) mg/dL Total Bilirubin 0.5 (0.2-1.0) mg/dL AST 28 (15-37) IU/L ALT 46 (14-63) IU/L Alkaline Phosphatase 58 (46-116) U/L Total Protein 6.3 L (6.4-8.2) g/dL Albumin 2.6 L (3.4-5.0) g/dL Globulin 3.7 (2.6-4.0) g/dL Albumin/Globulin Ratio 0.7 L (0.9-1.6) 11/09/20 Range/Units 11:10 WBC (4.0-11.0) K/uL RBC (4.50-5.90) M/uL Hgb (13.0-17.0) g/dL Hct (38.0-50.0) % MCV (80.0-98.0) fL MCH (27.0-32.0) pg MCHC (31.0-37.0) g/dL RDW Std Deviation (28.0-62.0) fl RDW Coeff of [place] (11.0-15.0) % Plt Count (150-400) K/uL MPV (7.40-12.00) fL Add Manual Diff Neutrophils % (Manual) (48.0-80.0) % Band Neutrophils % % Lymphocytes % (Manual) (16.0-40.0) % Monocytes % (Manual) (0.0-15.0) % Nucleated RBC % /100WBC Absolute Seg Neuts (1.4-5.7) Band Neutrophils # Lymphocytes # (Manual) (0.6-2.4) Monocytes # (Manual) (0.0-0.8) Nucleated RBCs # K/uL Sodium (136-148) mmol/L Potassium (3.5-5.1) mmol/L Chloride (98-107) mmol/L Carbon Dioxide (21.0-32.0) mmol/L BUN (7.0-18.0) mg/dL Creatinine (0.8-1.3) mg/dL Est Cr Clr Drug Dosing mL/min Estimated GFR (MDRD) ml/min Glucose (74-106) mg/dL POC Glucose 134 H (70-99) mg/dL Calcium (8.5-10.1) mg/dL Total Bilirubin (0.2-1.0) mg/dL AST (15-37) IU/L ALT (14-63) IU/L Alkaline Phosphatase (46-116) U/L Total Protein (6.4-8.2) g/dL Albumin (3.4-5.0) g/dL Globulin (2.6-4.0) g/dL Albumin/Globulin Ratio (0.9-1.6) Med Orders - Current: Current Medications Discontinued Medications Acetaminophen (Acetaminophen 325 Mg Tab) 650 mg PO Q4H PRN PRN Reason: Pain (Mild 1-3)/fever Albuterol/Ipratropium (Albuterol/Ipratropium 3.0-0.5 Mg/3 Ml Neb Soln) 3 ml NEB Q4HRRT PRN PRN Reason: Shortness Of Breath/wheezing Albuterol/Ipratropium (Albuterol/Ipratropium 4 Gm Inhalation [place]) 0 gm INH Q4H [facility] Last Admin: 11/09/20 11:18 Dose: 1 puff Documented by: Dexamethasone (Dexamethasone 10 Mg/Ml Sdv) 10 mg IVPUSH ONETIME ONE Stop: 11/05/20 22:44 Last Admin: 11/05/20 23:01 Dose: 10 mg Documented by: Dexamethasone (Dexamethasone 4 Mg Tab) 6 mg PO DAILY [facility] Last Admin: 11/09/20 08:04 Dose: 6 mg Documented by: Dextrose/Water (50% Dextrose In Water 50 Ml Syringe) 50 ml IVPUSH ASDIRECTED PRN PRN Reason: Hypoglycemia Enoxaparin Sodium (Enoxaparin 40 Mg/0.4 Ml Syringe) 40 mg SUBCUT Q24H [facility] Last Admin: 11/08/20 23:33 Dose: 40 mg Documented by: Glucagon (Glucagon,Human Recombinant 1 Mg Vial) 1 mg IM ASDIRECTED PRN PRN Reason: Hypoglycemia Remdesivir 200 mg/ Sodium (Chloride) 250 mls @ 250 mls/hr IV ONETIME ONE Stop: 11/05/20 22:44 Last Admin: 11/05/20 23:17 Dose: 250 mls/hr Documented by: Remdesivir 100 mg/ Sodium (Chloride) 100 mls @ 100 mls/hr IV Q24H [facility] Stop: 11/09/20 09:59 Levofloxacin/Dextrose 750 mg/ (Premix) 150 mls @ 100 mls/hr IV Q24H [facility] Last Admin: 11/08/20 23:32 Dose: 100 mls/hr Documented by: Remdesivir 100 mg/ Sodium (Chloride) 100 mls @ 100 mls/hr IV Q24H [facility] Stop: 11/09/20 23:59 Last Admin: 11/08/20 22:16 Dose: 100 mls/hr Documented by: Remdesivir 100 mg/ Sodium (Chloride) 100 mls @ 100 mls/hr IV Q24H [facility] Stop: 11/09/20 14:59 Last Admin: 11/09/20 13:57 Dose: 100 mls/hr Documented by: Insulin Aspart (Insulin Aspart 100 Units/Ml 3 Ml Pen) 0 unit SUBCUT TIDAC [facility]; Protocol Last Admin: 11/09/20 11:17 Dose: Not Given Documented by: Ondansetron HCl (Ondansetron 4 Mg/2 Ml Sdv) 4 mg IVPUSH Q4H PRN PRN Reason: Nausea/Vomiting Pantoprazole Sodium (Pantoprazole 40 Mg Vial) 40 mg IV DAILY [facility] Last Admin: 11/09/20 08:04 Dose: 40 mg Documented by: Sodium Chloride (Sodium Chloride 0.9% 2.5 Ml Syringe) 2.5 ml FLUSH ASDIRECTED PRN PRN Reason: Keep Vein Open
[2020-11-09] MEDS ORDERED: REMDESIVIR 100 MG in Sodium Chloride 0.9% 100 ML IV SCH (14:00)
== END 2020-11-09 15:45 | disposition home or self-care (01) | DRG 177 ==
LOC: MW.ED 22:11 → MW.ICU 23:15 → MW.MS 11-07 11:01
PROVIDERS: ADMIT Student in an Organized Health Care Education/Training Program; ATTEND Student in an Organized Health Care Education/Training Program
PROC: XW033E5 Introduction of Remdesivir Anti-infective into Peripheral Vein, Percutaneous Approach, New Technology Group 5 (ICD-10-PCS; principal; 2020-11-05)
DX: U07.1 COVID-19 (principal); J96.01 Acute respiratory failure with hypoxia; J12.82 Pneumonia due to coronavirus disease 2019; E11.9 Type 2 diabetes mellitus without complications; Z86.16 Personal history of COVID-19
CPT/HCPCS: 36415; 71045; 71045-26; 80053; 80061; 82248; 82550; 82947; 83036; 83735; 84443; 84484; 85025; 96374; 99222; 99233; 99239; 99291; A9270-GY; C9113; J1100; J1650; J1815-GY; J1956; J7050; J8540